=== PATIENT | male | born 1955 | race Caucasian/White ===

== ENCOUNTER 2017-01-23 23:45 | Emergency (ER) | payer BC, OTHER ==
[~2017-01-23] VITALS: Ht 182.9 cm; Wt 83.9 kg
--- NOTE | ~2017-01-23 | CT71 ---
[facility] A Service of [facility] RADIOLOGY TEXT RESULTS PATIENT: GENE CARROLL LOCATION: [facility] : 59 UNIT #: [id number] AGE: [address]: Tone Huber MD SEX: M ORDER DR: [id number] [address] [address] [id number] MR#: [id number] Acc #: [id number] NAME: GENE CARROLL : 1955 SEX: M STUDY DATE/TIME: 01/24/2017 1:06 UNIT: [facility] ROOM: STUDY DESCRIPTION: CT Head Wo Contrast Attending Physician: Tone Huber M.D. Ordering Physician: Tone Huber M.D. Primary Care Physician: Primary Care Physician No MEDICAL IMAGING REPORT This report is preliminary unless electronic signature is present EXAM Noncontrast CT head DATE 01/24/2017 HISTORY Fell tonight, complains of headache and left posterior head bruising. Intoxicated. COMPARISON None. FINDINGS This CT exam was performed with one or more of the following radiation dose reduction techniques: Automatic exposure control, adjustment of mA and/or kV according to patient size, and iterative reconstruction. Left parietal scalp soft tissue swelling is present. No acute intracranial hemorrhage is seen. Mild chronic microvascular disease changes. No evidence of acute or evolving infarct. No displaced calvarial fracture is identified. Minor ethmoid sinus and sphenoid sinus mucosal thickening. Mastoid air cells are clear. Dense intracranial carotid artery calcifications are present. IMPRESSION 1. Left posterior scalp soft tissue swelling. No acute intracranial findings. 2. Mild chronic microvascular disease. Dictated by... [facility] A Service of [facility] RADIOLOGY TEXT RESULTS PATIENT: GENE CARROLL LOCATION: [facility] : 59 UNIT #: [id number] AGE: [address]: Tone Huber MD SEX: M ORDER DR: Anna Rowe M.D. THIS IS AN ELECTRONICALLY VERIFIED REPORT Anna Rowe M.D. at 01/24/2017 9:39 PM MARCIN/radha TD: 01/24/2017 16:52 JOB #: [id number] MEDICAL IMAGING REPORT Page 1 of 1 COPY
[2017-01-24 01:40] LABS: URINE SOURCE CLEAN CATCH
[2017-01-24 01:42] LABS: BLOOD UREA NITROGEN <5 mg/dL (9-23); BUN/CREATININE RATIO 7.14; CALCIUM SERUM 8.9 mg/dL (8.4-10.2); CARBON DIOXIDE 26 mmol/L (22-31); CHLORIDE 91 mmol/L (100-111); CREATININE SERUM 0.7 mg/dL (0.6-1.4); GLOM FILT RATE Estimated 103.3 mL/min (>60); GLUCOSE FASTING 117 mg/dL (70-110); POTASSIUM 3.7 mmol/L (3.5-5.1); SODIUM 129 mmol/L (135-145)
[2017-01-24 01:43] LABS: ALCOHOL BLOOD 322 mg/dL (0)
[2017-01-24 01:44] LABS: URINE APPEARANCE CLEAR; URINE BILIRUBIN NEG (NEG); URINE BLOOD 1+ (NEG); URINE COLOR YELLOW; URINE GLUCOSE NEG (NEG); URINE KETONE NEG (NEG); URINE LEUKOCYTE ESTERASE NEG (NEG); URINE NITRATE NEG (NEG); URINE PROTEIN TRACE (NEG); URINE SPECIFIC GRAVITY 1.008 (1.003-1.035); URINE UROBILINOGEN 0.2 MG/DL (NEG)
[2017-01-24 01:46] LABS: U HYALINE CASTS AUWI 0-2 /[LPF]; URBCS1 AUWI 0-2 /[HPF] (0-2); URINE BACTERIA AUWI NEG (NEGATIVE); URINE SQUAMOUS EPITHELIAL CELL NONE SEEN /[HPF]; UWBCS1 AUWI 0-2 (0-5)
[2017-01-24 01:53] LABS: CULTURE INDICATED? NO
== END 2017-01-24 03:29 | disposition left against medical advice (07) ==
LOC: CED 23:45
PROVIDERS: Emergency Medicine
DX: F10.129 Alcohol abuse with intoxication, unspecified (principal); I10 Essential (primary) hypertension; F17.200 Nicotine dependence, unspecified, uncomplicated; Z88.0 Allergy status to penicillin
CPT/HCPCS: 36415; 70450; 80048; 81003; 96365; 99284; G0480; J3411; J3475